=== PATIENT | female | born 2000 | race Caucasian/White ===

== ENCOUNTER 2020-11-18 19:09 | Inpatient (IN) | payer BC ==
[2020-11-18 20:17] VITALS: BMI 26.4
[2020-11-19] MEDS ORDERED: MAG HYDROX/AL HYDROX/SIMETH 30 ML UNIT-DOSE CUP PO PRN (00:17)
[2020-11-19] MEDS ORDERED: MAGNESIUM CITRATE 300 ML BOTTLE PO PRN (00:17)
[2020-11-19] MEDS ORDERED: MAGNESIUM HYDROX 2400MG/30ML ORAL SUSPENSION 30 ML CUP PO PRN (00:17)
[2020-11-19] MEDS ORDERED: NICOTINE POLACRILEX 2 MG GUM BUC PRN (00:17)
[2020-11-19] MEDS ORDERED: cloNIDine HCL 0.1 MG TABLET PO PRN (00:17)
[2020-11-19] MEDS ORDERED: ONDANSETRON *ODT* 4 MG TABLET SL PRN (00:17)
[2020-11-19] MEDS ORDERED: MENTHOL/PHENOL 1 EACH UD MM PRN (00:17)
[2020-11-19] MEDS ORDERED: METHOCARBAMOL 500 MG TABLET PO PRN (00:17)
[2020-11-19] MEDS ORDERED: diazePAM 5 MG TABLET PO PRN (00:17)
[2020-11-19] MEDS ORDERED: BISMUTH SUBSALICYLATE 524 MG/30 ML UD PO PRN (00:17)
[2020-11-19] MEDS ORDERED: METHADONE HCL 10 MG TABLET (FOR DETOX USE ONLY) PO ONE (00:17)
[2020-11-19] MEDS ORDERED: IBUPROFEN 400 MG TABLET (FP) PO PRN (00:17)
[2020-11-19] MEDS ORDERED: ACETAMINOPHEN 325 MG TABLET (FP) PO PRN ×2 (00:17)
[2020-11-19] MEDS: diazePAM 5 MG TABLET PO SCH ×4 (08:02→22:43)
[2020-11-19] MEDS: NICOTINE 14 MG/24 HOURS TOPICAL PATCH TD SCH (11:16)
[2020-11-19] MEDS: PRENATAL VITAMINS W/ FOLIC ACID TABLET (FP) PO SCH (11:16)
[2020-11-19] MEDS ORDERED: MELATONIN 5 MG TABLETS PO SCH (22:00)
[2020-11-19] MEDS ORDERED: THIAMINE HCL 100 MG TABLET (FP) PO SCH (22:00)
[2020-11-20] MEDS: diazePAM 5 MG TABLET PO SCH ×2 (06:18→14:32)
[2020-11-20] MEDS ORDERED: METHADONE HCL 10 MG TABLET (FOR DETOX USE ONLY) ONE (09:01)
[2020-11-20] MEDS ORDERED: METHADONE HCL 5 MG TABLET (FOR DETOX USE ONLY) ONE (09:01)
[2020-11-20] MEDS: NICOTINE 14 MG/24 HOURS TOPICAL PATCH TD SCH (09:59)
[2020-11-20] MEDS ORDERED: METHADONE (DETOX) 20 MG, METHADONE (DETOX) 5 MG PO ONE (10:00)
[2020-11-20] MEDS: PRENATAL VITAMINS W/ FOLIC ACID TABLET (FP) PO SCH (10:03)
[2020-11-20 11:37] LABS: HEMATOCRIT 37.6 % (32.4-45.2); HEMOGLOBIN 12.4 GM/dL (10.7-15.3); MCHC 33.1 g/dl (32.0-36.0); MEAN CELL VOLUME 87.6 fl (80-96); MEAN PLT VOLUME 8.5 fl (7.5-11.1); PLATELET COUNT 265 K/MM3 (134-434); RDW 13.9 % (11.6-15.6); WHITE BLOOD COUNT 7.6 K/mm3 (4.0-10.0)
[2020-11-20 12:08] LABS: BLOOD UREA NITROGEN 17.5 mg/dL (7-18)
[2020-11-20 12:13] LABS: BILIRUBIN,TOTAL 0.2 mg/dL (0.2-1)
[2020-11-20 12:14] LABS: ALBUMIN 3.4 g/dl (3.4-5.0); TOT PROT 6.3 g/dl (6.4-8.2)
[2020-11-20 12:16] LABS: CREATININE 0.8 mg/dL (0.55-1.3)
[2020-11-20 14:27] VITALS: BP 93/70; PULSE 94; TEMP 96.8
[2020-11-20] MEDS ORDERED: SUVOREXANT 10 MG TABLET PO PRN (22:00)
[2020-11-21] MEDS ORDERED: diazePAM 5 MG TABLET PO SCH (06:00)
[2020-11-21] MEDS ORDERED: METHADONE HCL 10 MG TABLET (FOR DETOX USE ONLY) PO ONE (10:00)
[2020-11-22] MEDS ORDERED: diazePAM 5 MG TABLET PO ONE (06:00)
[2020-11-22] MEDS ORDERED: METHADONE (DETOX) 10 MG, METHADONE (DETOX) 5 MG PO ONE (10:00)
[2020-11-23] MEDS ORDERED: METHADONE HCL 10 MG TABLET (FOR DETOX USE ONLY) PO ONE (10:00)
[2020-11-24] MEDS ORDERED: METHADONE HCL 5 MG TABLET (FOR DETOX USE ONLY) PO ONE (06:00)
== END 2020-11-20 04:34 | disposition left against medical advice (07) | DRG 894 ==
LOC: YASAS 19:09 → Y6N 11-19 00:13
PROVIDERS: ADMIT Allergy & Immunology; ATTEND Allergy & Immunology
PROC: HZ2ZZZZ Detoxification Services for Substance Abuse Treatment (ICD-10-PCS; principal; 2020-11-19)
DX: F11.23 Opioid dependence with withdrawal (principal); F19.282 Other psychoactive substance dependence with psychoactive substance-induced sleep disorder; F13.230 Sedative, hypnotic or anxiolytic dependence with withdrawal, uncomplicated; F17.213 Nicotine dependence, cigarettes, with withdrawal; F19.24 Other psychoactive substance dependence with psychoactive substance-induced mood disorder; F43.10 Post-traumatic stress disorder, unspecified; F41.9 Anxiety disorder, unspecified; F32.9 Major depressive disorder, single episode, unspecified; R76.11 Nonspecific reaction to tuberculin skin test without active tuberculosis; R40.4 Transient alteration of awareness; R06.89 Other abnormalities of breathing; Z88.2 Allergy status to sulfonamides; Z91.018 Allergy to other foods
CPT/HCPCS: 36415; 80053; 81025; 85027; 86780; 93005; 93010; C9803; U0003

== ENCOUNTER 2020-11-18 20:55 | Emergency (ER) | payer BC ==
[2020-11-18 21:00] VITALS: TEMP 98.3; BMI 24.2
[2020-11-18 21:25] LABS: BASO % 0.5 % (0-2.0); EOS % 1.5 % (0-4.5); HEMATOCRIT 39.4 % (32.4-45.2); HEMOGLOBIN 13.3 GM/dL (10.7-15.3); LYMPH % 26.3 % (8-40); MCH 29.3 pg (25.7-33.7); MCHC 33.7 g/dl (32.0-36.0); MEAN CELL VOLUME 86.9 fl (80-96); MEAN PLT VOLUME 8.2 fl (7.5-11.1); MONO % 9.4 % (3.8-10.2); NEUT % 62.3 % (42.8-82.8); PLATELET COUNT 281 K/MM3 (134-434); RBC 4.53 M/mm3 (3.60-5.2); RDW 13.9 % (11.6-15.6); WHITE BLOOD COUNT 8.4 K/mm3 (4.0-10.0)
[2020-11-18 21:32] LABS: INR 1.1 (0.83-1.09); PROTHROMBIN TIME (PATIENT) 13.3 SEC (9.7-13.0)
[2020-11-18] MEDS ORDERED: SODIUM CHLORIDE 0.9% 500 ML INFUS.BAG IV ONE (21:55)
[2020-11-18 22:02] LABS: CALCIUM 9.2 mg/dL (8.5-10.1); CHLORIDE 105 mmol/L (98-107); SODIUM 141 mmol/L (136-145)
[2020-11-18 22:03] LABS: ALBUMIN 3.9 g/dl (3.4-5.0); ANION GAP 6 MMOL/L (8-16); BLOOD UREA NITROGEN 15.2 mg/dL (7-18); CO2 30 mmol/L (21-32)
[2020-11-18 22:05] LABS: GLUCOSE,RANDOM 78 mg/dL (74-106)
[2020-11-18 22:07] LABS: CREATININE 0.8 mg/dL (0.55-1.3); SGOT/AST 10 U/L (15-37); SGPT/ALT 18 U/L (13-61)
[2020-11-18 22:09] LABS: ALK PHOS 73 U/L (45-117); BILIRUBIN,TOTAL 1.1 mg/dL (0.2-1); TOT PROT 7.2 g/dl (6.4-8.2)
[2020-11-18] MEDS ORDERED: NALOXONE HCL 0.4 MG/ML VIAL IVPUSH ONE (22:11)
[2020-11-18 22:20] VITALS: BP 92/61; PULSE 59
== END 2020-11-18 22:34 | disposition short-term general hospital (02) ==
LOC: JER 20:55
DX: F19.10 Other psychoactive substance abuse, uncomplicated (principal)
CPT/HCPCS: 36415; 80053; 80307; 82140; 84702; 85025; 85610; 93005; 93010; 99284-25